=== PATIENT | male | born 1955 | race Caucasian/White ===

== ENCOUNTER 2022-01-04 14:11 | Emergency (ER) | payer BC, MEDICARE | END 2022-01-04 18:05 | disposition home or self-care (01) | LOC: JD.ED 14:11 | DX: M25.562 Pain in left knee (principal); M25.462 Effusion, left knee; R60.0 Localized edema; Z88.0 Allergy status to penicillin; Z79.899 Other long term (current) drug therapy | CPT/HCPCS: 73564-26-LT; 73564-LT; 93971-26-LT; 93971-LT; 99284-25 ==